=== PATIENT | female | born 1940 | race Caucasian/White ===

== ENCOUNTER → 2017-02-28 | Outpatient (CLI) | payer MEDICARE, BC ==
[~2017-02-28] MED LIST: ANAS1TAB8 PO; ASPI-611 PO; FAMO40TA PO; GABA-215 PO; GABA-338 PO; LISI1TAB PO; LOVA20TA71 PO; PIOG15TA22 PO; TRAM50TA53 PO
== END ==
LOC: WC.BC 09:22
PROVIDERS: ATTEND Family Medicine
DX: C50.911 Malignant neoplasm of unspecified site of right female breast (principal); N64.59 Other signs and symptoms in breast; Z08 Encounter for follow-up examination after completed treatment for malignant neoplasm
CPT/HCPCS: G0204; G0279